=== PATIENT | male | born 1975 | race Caucasian/White ===

== ENCOUNTER 2017-11-19 09:06 | Outpatient (CLI) | payer OTHER ==
[2017-11-19] MEDS ORDERED: TAMS0.4C PO (15:02)
[2017-11-19] MEDS ORDERED: CIPRO500 MG PO (15:03)
[2017-11-19] MEDS ORDERED: TYLENOL EXTRA500 MG PO (15:04)
[2017-11-19] MEDS ORDERED: DOCUPRENE100 MG PO (15:04)
[2017-11-19] MEDS ORDERED: CLONAZEPAM0.5 MG PO (15:05)
== END 2017-11-19 09:10 | disposition home or self-care (01) ==
LOC: RAD 09:06
DX: N20.1 Calculus of ureter (principal)

== ENCOUNTER 2017-11-20 06:10 | Day surgery (SDC) | payer OTHER ==
[~2017-11-20 06:10] MED LIST: CIPRO500 MG PO; CLONAZEPAM0.5 MG PO; DOCUPRENE100 MG PO; TAMS0.4C PO; TYLENOL EXTRA500 MG PO
== END 2017-11-20 16:15 | disposition home or self-care (01) ==
LOC: CIR.AMB 06:10
DX: N20.1 Calculus of ureter (principal)